=== PATIENT | male | born 1960 | race Caucasian/White ===

== ENCOUNTER 2022-06-20 17:47 | Observation (INO) ==
[2022-06-20] MEDS ORDERED: KETOROLAC 60 MG/2 ML VIAL IM STA (18:41)
[2022-06-20] MEDS ORDERED: [UNRECOGNIZED DRUG - OTHER] PO PRN (21:05)
[2022-06-20] MEDS ORDERED: ONDANSETRON 4 MG/2 ML VIAL IV PRN (21:05)
[2022-06-20] MEDS ORDERED: ACETAMINOPHEN 325 MG TABLET PO PRN (21:05)
[2022-06-20] MEDS ORDERED: NON-FORMULARY MEDICATION (Diphenhydramine-Acetaminophen [Tylenol Pm Extra Strength] 25-500 PO PRN (21:05)
[2022-06-20] MEDS: HYDROmorphone 1 MG/1 ML SYRINGE IV PRN (21:27)
[2022-06-20] MEDS: DOCUSATE SODIUM 100 MG CAPSULE PO SCH (21:49)
[2022-06-20] MEDS: ZALEPLON 5 MG CAPSULE PO PRN (21:49)
[2022-06-20] MEDS: SODIUM CHLORIDE 0.9% 1,000 ML IV SCH (21:49)
[2022-06-20] MEDS ORDERED: INFLUENZA VIRUS VACCINE 0.5 ML SYRINGE IM ONE (22:10)
[2022-06-21] MEDS: HYDROmorphone 1 MG/1 ML SYRINGE IV PRN ×2 (01:33→05:46)
[2022-06-21 05:43] LABS: Basophils % 0.6 % (0.0-0.8); Eosinophils # 0.2 10*3/uL (0.0-0.87); Eosinophils % 2.1 % (0.00-10.9); Hematocrit 43.8 VOL% (42.0-52.0); Hemoglobin 14.3 GM/DL (14.0-18.0); Immature Granulocytes % 0.4 %; Immature Granulocytes Absolute 0.03 #; Lymphocytes # 1.4 10*3/uL (1.4-4.0); Lymphocytes % 19.7 % (21.2-54.2); Mean Corpuscular HGB Conc 32.6 GM/DL (32-36); Mean Corpuscular Volume 99.1 FL (87-102); Mean Platelet Volume 11.2 FL (9.6-12.0); Monocytes # 0.7 10*3/uL (0.11-0.8); Monocytes % 9.7 % (1.7-12.7); Neutrophils % 67.5 % (38.7-73.9); Platelet Count 246 T/CUMM (130-400); Red Blood Count 4.42 MC/CUMM (3.8-5.5); Red Cell Distribution Width 13.2 % (9.3-17.3); White Blood Count 7.1 T/CUMM (4-12)
[2022-06-21 06:01] LABS: Albumin 3.3 G/DL (3.4-5.0); Bilirubin,Total 0.5 MG/DL (0.20-1.00); Calcium 8.5 MG/DL (8.5-10.1); Osmolality,Calculated 289.1 MOS/KG (273-304); Potassium 3.9 MMOL/L (3.5-5.1); Total Protein 6.7 G/DL (6.4-8.2)
[2022-06-21] MEDS: DOCUSATE SODIUM 100 MG CAPSULE PO SCH ×2 (08:40→21:15)
[2022-06-21] MEDS: PANTOPRAZOLE 40 MG TABLET PO SCH (08:41)
[2022-06-21] MEDS ORDERED: ceFAZolin 2,000 MG/50 ML DUPLEX IV ONE (09:16)
[2022-06-21] MEDS: RAPAFLO PO SCH (09:29)
[2022-06-21] MEDS ORDERED: ROCURONIUM 50 MG/5 ML VIAL IV ONE (09:47)
[2022-06-21] MEDS ORDERED: MIDAZOLAM 2 MG/2 ML VIAL ONE (09:47)
[2022-06-21] MEDS ORDERED: fentaNYL 100 MCG/2 ML VIAL ONE ×2 (09:47→10:53)
[2022-06-21] MEDS ORDERED: propofoL 200 MG/20 ML VIAL IV ONE (09:47)
[2022-06-21] MEDS ORDERED: LIDOCAINE 2% 5 ML VIAL ONE (09:47)
[2022-06-21] MEDS ORDERED: LIDOCAINE 1% 5 ML VIAL ONE (09:54)
[2022-06-21] MEDS ORDERED: DEXAMETHASONE 4 MG/1 ML VIAL ONE ×2 (09:54→11:52)
[2022-06-21] MEDS ORDERED: ROPIVACAINE 0.5% 30 ML VIAL ONE (09:54)
[2022-06-21] MEDS ORDERED: LACTATED RINGERS 1,000 ML IV SCH (10:30)
[2022-06-21] MEDS ORDERED: ePHEDrine 50 MG/ML VIAL ONE (11:27)
[2022-06-21] MEDS ORDERED: LACTATED RINGERS 1,000 ML IV ONE (11:52)
[2022-06-21] MEDS ORDERED: KETOROLAC 30 MG/1 ML VIAL ONE (11:52)
[2022-06-21] MEDS ORDERED: ONDANSETRON 4 MG/2 ML VIAL ONE (11:52)
[2022-06-21] MEDS ORDERED: SUGAMMADEX 200 MG/2 ML VIAL IV ONE (11:54)
[2022-06-21] MEDS ORDERED: BACITRACIN OINT 0.9 GM PACK TOP ONE (12:08)
[2022-06-21] MEDS ORDERED: SEVOFLURANE 1 UNIT/15 MINUTE INH ONE (12:16)
[2022-06-21] MEDS ORDERED: MAGNESIUM HYDROXIDE SUSP 30 ML UDCUP PO PRN (12:22)
[2022-06-21] MEDS: ceFAZolin 2,000 MG/50 ML DUPLEX IV SCH (17:09)
[2022-06-21] MEDS: SODIUM CHLORIDE 0.9% 1,000 ML IV SCH (20:10)
[2022-06-21] MEDS: ZALEPLON 5 MG CAPSULE PO PRN (21:15)
[2022-06-21] MEDS: KETOROLAC 30 MG/1 ML VIAL IV PRN (21:16)
[2022-06-22] MEDS: ceFAZolin 2,000 MG/50 ML DUPLEX IV SCH (01:28)
[2022-06-22 04:37] LABS: Basophils % 0.1 % (0.0-0.8); Eosinophils % 0.1 % (0.00-10.9); Hematocrit 40.4 VOL% (42.0-52.0); Hemoglobin 13.4 GM/DL (14.0-18.0); Immature Granulocytes % 0.5 %; Immature Granulocytes Absolute 0.06 #; Lymphocytes % 7.6 % (21.2-54.2); Mean Corpuscular HGB Conc 33.2 GM/DL (32-36); Mean Corpuscular Volume 98.3 FL (87-102); Mean Platelet Volume 10.8 FL (9.6-12.0); Monocytes # 1.3 10*3/uL (0.11-0.8); Monocytes % 10.3 % (1.7-12.7); Neutrophils % 81.4 % (38.7-73.9); Platelet Count 202 T/CUMM (130-400); Red Blood Count 4.11 MC/CUMM (3.8-5.5); White Blood Count 12.9 T/CUMM (4-12)
[2022-06-22 04:54] LABS: Calcium 8.4 MG/DL (8.5-10.1); Osmolality,Calculated 284.4 MOS/KG (273-304); Potassium 4.2 MMOL/L (3.5-5.1)
[2022-06-22] MEDS ORDERED: FONDAPARINUX 2.5 MG/0.5 ML SYRINGE SUBCUT SCH (06:30)
[2022-06-22] MEDS: PANTOPRAZOLE 40 MG TABLET PO SCH (08:08)
[2022-06-22] MEDS: DOCUSATE SODIUM 100 MG CAPSULE PO SCH (08:08)
[2022-06-22] MEDS: KETOROLAC 30 MG/1 ML VIAL IV PRN (08:09)
[2022-06-22] MEDS: RAPAFLO PO SCH (08:37)
[2022-06-22] MEDS ORDERED: PANTOPRAZOLE 40 MG TABLET PO SCH (09:00)
[2022-06-22] MEDS: HYDROmorphone 1 MG/1 ML SYRINGE IV PRN (09:25)
[2022-06-22 11:42] VITALS: BP 121/61
[2022-06-22] MEDS ORDERED: INFLUENZA VIRUS VACCINE 0.5 ML SYRINGE IM ONE (13:00)
== END 2022-06-22 15:35 | disposition home health service (06) ==
LOC: N.ED 17:47 → N.EDINP 17:47 → N.3E 21:04
PROVIDERS: ADMIT Family Medicine; ATTEND Family Medicine